=== PATIENT | female | born 1935 | race Caucasian/White ===

== ENCOUNTER → 2016-12-07 | Outpatient (CLI) | payer OTHER, MEDICARE | LOC: BHFA 11:45 | PROVIDERS: ATTEND Internal Medicine Cardiovascular Disease | DX: I48.91 Unspecified atrial fibrillation (principal); I45.4 Nonspecific intraventricular block ==

== ENCOUNTER → 2017-03-06 | Outpatient (CLI) | payer OTHER, MEDICARE | LOC: BHLMT 11:00 | PROVIDERS: ATTEND Internal Medicine Interventional Cardiology | DX: I48.91 Unspecified atrial fibrillation (principal); I45.4 Nonspecific intraventricular block | CPT/HCPCS: 93017-PO ==

== ENCOUNTER → 2017-12-27 | Outpatient (CLI) | payer OTHER, MEDICARE | LOC: BHFA 09:45 | PROVIDERS: ATTEND Nurse Practitioner Adult Health | DX: I48.91 Unspecified atrial fibrillation (principal); I45.4 Nonspecific intraventricular block; I10 Essential (primary) hypertension ==

== ENCOUNTER → 2018-04-09 | Outpatient (CLI) | payer OTHER, MEDICARE | LOC: BHLMT 09:30 | PROVIDERS: ATTEND Internal Medicine Cardiovascular Disease | DX: I48.91 Unspecified atrial fibrillation (principal) | CPT/HCPCS: 93017-PO ==

== ENCOUNTER → 2018-10-07 | Outpatient (CLI) | payer OTHER, MEDICARE | LOC: BHLMT 14:35 | PROVIDERS: ATTEND Internal Medicine Cardiovascular Disease | DX: I48.91 Unspecified atrial fibrillation (principal) | CPT/HCPCS: 93306-PO ==